=== PATIENT | female | born 1990 | race Caucasian/White ===

== ENCOUNTER 2020-05-03 17:23 | Emergency (ER) | payer BC, SELFPAY ==
[2020-05-03 17:30] VITALS: BP 155/104; PULSE 99; RESP 20; TEMP 37.2; O2SAT 98; BMI 36.0
--- NOTE | 2020-05-03 17:42 | HMH.EDUTC ---
[facility] [place] Disposition Clinical Impression: Pilonidal cyst Disposition: Home, Self-Care Condition on Discharge: Good Instructions: DI for Pilonidal Cyst Drainage or Removal Additional Instructions: Take antibiotics as prescribed. Warm soaks as often as possible. Follow up with surgery for excision. Prescriptions: Sulfamethoxazole/Trimethoprim [Bactrim DS tablet] 1 each PO BID 10 Days #20 tab Transmission Status: Pending to [facility]/pharmacy #[id number] Referrals: Jayden Almonte MD [Staff Physician] - Time of Disposition: 17:45 Medical Decision Making - Galindo Inquiry Pt receiving controlled substance: No Vital Signs: 05/03/20 17:30 Temperature 98.9 F Temperature Source Oral Pulse Rate [Right Brachial] 99 H Respiratory Rate 20 Blood Pressure [Right Arm] 155/104 H Blood Pressure Mean [Right Arm] 121 Blood Pressure Source [Right Arm] Automatic Cuff Blood Pressure Position [Right Arm] Sitting 02 Sat by Pulse Oximetry 98 Oxygen Delivery Method Room Air [facility] [place] HPI - General Stated complaint: Cyst on tail bone Time Seen by Provider: 05/03/20 17:42 Mode of Arrival: Ambulatory Source of Information: Patient Limitations: No Limitations Description of Symptoms (Recalled from Triage Doc. by RN): PATIENT C/O CYST ON TAILBONE X 3 DAYS HEENT Symptoms (Recalled from RN notes): No Resp Symptoms (Recalled from RN notes): No Skin Symptoms (Recalled from RN notes): No MS Symptoms (Recalled from RN notes): No Functional Status (Recalled from RN notes): WNL - History of Present Illness Provider Complaint: Pilonidal cyst right gluteus X 3 days. Has had X 2 in the past. Has had lanced but never had excision because she did not have insurance at the time. Onset (ago): day(s) (3) Location: buttocks Relieving factors: none Exacerbating factors: none Associated symptoms: denies other symptoms Treatments prior to arrival: none - Related Data Previous Rx's Medication Instructions Recorded Amoxicillin/Potassium Clav 1 tab PO Q12H 7 Days #17 tab 01/03/19 [Augmentin 875-125 Tablet] Ibuprofen [Ibuprofen 600mg 600 mg PO Q6HP PRN #30 tab 01/03/19 Tablet] Ondansetron [Zofran 4mg ODT] 4 mg PO Q8HP PRN #20 tab.rapdis 09/24/19 Sulfamethoxazole/Trimethoprim 1 each PO BID 10 Days #20 tab 05/03/20 [Bactrim DS tablet] Allergies Allergy/AdvReac Type Severity Reaction Status Date / Time No Known Allergies Allergy Verified 11/14/18 13:40 - Worker's Comp Is this a Worker's Comp case?: No [facility] History - Hepatitis A Screen Drug use history?: No High risk sexual behaviors?: No History of sexually transmitted infection?: No Currently employed?: No Childcare worker?: No Do you have indoor plumbing?: Yes Do you have electricity?: Yes Attestation statement:: This patient has been screened for Hepatitis A risk factors. I have reviewed the patient's past medical history: No - Social History Alcohol Intake: never Occupational Status: other ROS Obtained: Yes All systems reviewed & no additional complaints - Integumentary/Breasts Skin/Breast: Reports as per HPI Physical Exam - General General appearance: alert, in no apparent distress - Head Head exam: normocephalic - Eye Eye exam: Present: PERRL - ENT ENT exam: Present: normal oropharynx - Respiratory Respiratory exam: Present: normal lung sounds bilaterally - Cardiovascular Cardiovascular exam: Present: regular rate, normal rhythm - Rectal Exam Rectal exam: Present: other (pilonidal cyst right gluteal cleft) - Neurological Exam Neurological exam: Present: alert, oriented X3 - Psychiatric Psychiatric exam: Present: normal affect, normal mood - Skin Skin exam: Present: warm, dry
[2020-05-03 17:45] VITALS: BP 155/104; PULSE 99; RESP 20; TEMP 37.2; O2SAT 98
== END 2020-05-03 17:49 | disposition home or self-care (01) ==
PROVIDERS: Emergency Provider Physician Assistant
DX: L05.91 Pilonidal cyst without abscess (principal)
CPT/HCPCS: 99202; G0463

== ENCOUNTER → 2020-05-06 14:47 | Outpatient (CLI) | payer BC, SELFPAY ==
[2020-05-06 15:17] LABS: Basophils # 0.1 K/mm3 (0-0.2); Basophils % 0.4 % (0.1-2.0); Eosinophils # 0.1 K/mm3 (0.0-0.4); Eosinophils % 0.8 % (0.1-12.0); Hemoglobin 13.2 g/dL (12.2-16.2); Lymphocytes # 1.4 K/mm3 (0.7-4.5); Lymphocytes % 10.4 % (10-50); Mean Corpuscular Volume 85.1 fl (81-99); Mean Platelet Volume 8.1 fl (7.4-10.4); Monocytes # 0.7 K/mm3 (0.1-1.0); Monocytes % 5.2 % (1.7-9.3); Neutrophils # 10.8 K/mm3 (1.8-7.8); Neutrophils % 83.3 % (37.0-80.0); Platelet Count 292 K/mm3 (142-424); Red Cell Distribution Width 13.3 % (11.5-17.5)
[2020-05-06 16:52] LABS: Coronavirus 19 IgG Antibody Negative (Negative); Coronavirus 19 IgM Antibody Negative (Negative)
== END ==
PROVIDERS: Visit Provider Surgery
DX: Z01.812 Encounter for preprocedural laboratory examination (principal); Z20.822 Contact with and (suspected) exposure to COVID-19; L05.91 Pilonidal cyst without abscess
CPT/HCPCS: 36415; 85025; 86328

== ENCOUNTER 2020-05-07 10:26 | Day surgery (SDC) | payer BC, SELFPAY ==
[2020-05-07] VITALS (9 sets, daily range): BP systolic 104–146; BP diastolic 59–84; PULSE 88–115; RESP 16–18; TEMP 36.6–36.9; O2SAT 92–98; BMI 36.8
[2020-05-07 11:01] LABS: HCG Qualitative, Serum Negative (Negative)
--- NOTE | 2020-05-07 12:21 | HMH.OPNOTE ---
Date of procedure: 05/07/20 Pre-op Diagnosis:: Pilonidal cyst with abscess Post-op Diagnosis:: Same Procedure performed:: Incision and drainage of pilonidal cyst with abscess Surgeon:: Juliocesar Fields MD INTERPRETER AND TRANSLATOR:: Harlan Coronel Anesthesia: GETA Estimated blood loss (mL): 5 Clinical Note:: Patient is a pleasant 30-year-old female referred by the [facility] with pilonidal cyst. She states that she has had problems with this in the past. In approximately 2017 she developed symptoms consistent with pilonidal cyst with abscess and underwent incision and drainage in the emergency department in [place]. In 2019 she underwent incision and drainage for pilonidal cyst with abscess in the emergency department at this institution and was referred for surgical evaluation but was unable to keep that appointment. She presented to the [facility] on 05/03/2020 with a 3-day history of progressive pain over the tailbone . She was started on antibiotics and referred for surgical evaluation. She has had a significant amount of pain. She contacted the office yesterday regarding being seen. Patient was seen in the office yesterday and had a large fluctuant pilonidal abscess. Plan was made for incision and drainage under anesthesia. Operative findings:: Consistent with significant pilonidal abscess Operative note:: Patient was taken to the operating room. She was given preoperative intravenous antibiotics. In the operating room she was placed in the supine position. General anesthesia was induced. She was positioned in lateral position. The area was prepped and draped in standard surgical fashion. Since evaluation in the office yesterday she has had some progressive fluctuance and an area of minor necrosis over the most prominent area of fluctuance. Very limited incision was made at this site. Very foul-smelling thick pus vigorously exuded from the wound. This was sent for aerobic and anaerobic cultures. The underlying abscess cavity was evacuated. There were a couple of small skin punctum medial and inferior to the incision and drainage site consistent with pilonidal sinus. The incision was extended to allow for evacuation of underlying abscess. The abscess was not opened in his entirety but was able to be evacuated. Wound was irrigated. Local anesthetic was infiltrated deeply and into the surrounding skin. Wound was packed with 1/2 inch plain packing gauze. Clean dry sterile dressing was applied. Condition: stable Disposition: PACU Specimens:: Cultures Complications:: None immediately apparent
--- NOTE | 2020-05-07 12:28 | HMH.ANESCL ---
[facility] Anesthesia Checklist - Patient Identification Patient Identification: Arm Band - Structural Data Admitted From: Home Planned Operative Procedure/s: I&D Pilonidal Abscess Consent for Planned Operative Procedure(s) Verified: Yes Verified Documents: Surgical Consent, History and Physical - NPO Status Verified Time NPO: 00:00 - Additional verifications Anesthesia Reactions: No Hx Blood Transfusions: No Blood Transfusion Reaction: No - Airway Assessment C-Spine Mobility Assessed: Yes (mp2) TMJ Mobility Assessed: Yes Dentition: Good Dentition - Neurological Assessment Level of Consciousness: Awake, Alert - Anesthesia Plan Anesthesia Risk discussed: Yes Anesthesia Plan: Verified ASA Class: II Anesthesia Type: General [facility] History I have reviewed the patient's past medical history: Yes Medical History: Denies:: Cancer, Diabetes Mellitus Type 1, Diabetes Mellitus Type 2, Internal Pacemaker, MRSA, Seizures *Have you ever received a pneumonia vaccine?: No *Have you received a flu vaccine this season?: No Other Medical History: Denies: Blood Transfusion Reaction Anesthesia experience/problems:: nac Laterality Cases: Right: Other Other Surgeries: Yes: Other. No: Pacemaker Amputation: No Fractures: No - *Social History Last grade of school completed: High school graduate Smoking Status: Never smoker Alcohol Intake: never Substance Use Type: other *Occupational Status:: employed Housing: house Household Members: children *Travel in the last 8 weeks: None Family Hx:: No significant family history
--- NOTE | 2020-05-07 12:29 | P.PN_ITS ---
[facility] Anesthesia Record Part I Intake, IV Amount: 500 Estimated blood loss (mL): 5 Urine output (mL): 0 Blood Pressure: 125/73 SaO2: 92 Pulse Rate: 100 Respiratory Rate: 16 Temperature: 98.3 F Patient is:: Drowsy, Stable Stable to PACU at:: 12:20
--- NOTE | 2020-05-07 12:38 | PC.NURSE ---
1237-pt awake and talking appropriately with staff, eating ice chips w/out difficulty, denies nausea or pain
--- NOTE | 2020-05-07 12:52 | PC.NURSE ---
1248-detailed report called to Amelia,RN 1250-pt transported to post op via stretcher w/onofre rails up, vss, pt stable upon discharge from pacu
--- NOTE | 2020-05-08 08:22 | HMH.ANESII ---
[facility] Anesthesia Record Part II Discharge Time: 12:50 Destination: Surgical Day Care (OP Surgery) PACU nurse assessment reviewed?: Yes Patient Condition:: Good Anesthesia Complications:: None Swallowing reflex intact?: Yes Cyanosis?: No Blood Pressure: 136/65 Pulse Rate: 89 Temperature: 98.4 F Mental Status: Alert & Oriented Pain level:: 0 Nausea and/or vomitting:: None Intake, IV Amount: 0
[2020-05-08 08:23] VITALS: BP 136/65; PULSE 89; TEMP 36.9
== END 2020-05-07 13:25 | disposition home or self-care (01) ==
LOC: OR 10:30
PROVIDERS: Visit Provider Surgery
PROC: (CPT 10081; principal; 2020-05-07 11:30)
DX: L05.01 Pilonidal cyst with abscess (principal); B96.89 Other specified bacterial agents as the cause of diseases classified elsewhere
CPT/HCPCS: 10081; 84703; 87070; 87075; 87077; 87205; 96374; J2405

== ENCOUNTER → 2021-09-05 15:59 | Outpatient (CLI) | payer SELFPAY | PROVIDERS: Visit Provider Nurse Practitioner Family | DX: N39.0 Urinary tract infection, site not specified (principal); B96.4 Proteus (mirabilis) (morganii) as the cause of diseases classified elsewhere | CPT/HCPCS: 87086; 87088; 87186 ==

== ENCOUNTER → 2021-12-03 10:03 | Outpatient (CLI) | payer OTHER, SELFPAY ==
--- NOTE | 2021-12-03 19:54 | PC.NURSE ---
Zeny Xie had a positive strep test.
== END ==
PROVIDERS: PCP Family Medicine; Visit Provider Emergency Medicine
DX: Z20.822 Contact with and (suspected) exposure to COVID-19 (principal)
CPT/HCPCS: C9803; U0003; U0005

== ENCOUNTER → 2022-02-12 11:49 | Outpatient (CLI) | payer OTHER, SELFPAY ==
[2022-02-13 15:07] LABS: Alanine Aminotransferase 17 U/L (12-78); Albumin Level 4.1 g/dl (3.5-5.0); Albumin/Globulin Ratio 1.4 (1.1-1.8); Alkaline Phosphatase 72 U/L (38-126); Anion Gap 13.5 mEq/L (5-15); Aspartate Amino Transferase 25 U/L (14-36); Bilirubin,Total 0.5 mg/dl (0.2-1.3); Blood Urea Nitrogen 11 mg/dl (7-17); Calcium 9.6 mg/dl (8.4-10.2); Carbon Dioxide 27 mmol/L (22.0-30.0); Chloride 102 mmol/L (98-107); Chol/HDL Ratio 3.7 (1-3.5); Cholesterol 168 mg/dl (140-200); Estimated Glomerular Filt Rate 96 ml/min (>60); GFR (African American) 117 ML/MIN (>60); Glucose 97 mg/dl (74-100); HDL Cholesterol 45 mg/dl (40-60); Potassium 4.5 mmoL/L (3.5-5.1); Sodium 138 mmol/L (136-145); Total Protein,Serum 7.1 g/dl (6.3-8.2); Triglycerides 147 mg/dl (30-150); VLDL Cholesterol 29 mg/dL (0-40)
[2022-02-13 15:18] LABS: Direct LDL Cholesterol 84.36 mg/dL (100-129)
[2022-02-13 15:24] LABS: 25-OH Vitamin D, Total 18.3 ng/mL (30-100)
[2022-02-13 15:35] LABS: Basophils # 0.1 K/mm3 (0-0.2); Basophils % 0.8 % (0.1-2.0); Eosinophils # 0.2 K/mm3 (0.0-0.4); Eosinophils % 2.2 % (0.1-12.0); Hemoglobin 12.1 g/dL (12.2-16.2); Lymphocytes # 2.6 K/mm3 (0.7-4.5); Lymphocytes % 31.6 % (10-50); Mean Corpuscular HGB Conc 32.7 g/dL (31.8-35.4); Mean Corpuscular Hemoglobin 28.5 pg (27.0-31.2); Mean Corpuscular Volume 87.3 fl (81-99); Mean Platelet Volume 8.4 fl (7.4-10.4); Monocytes # 0.4 K/mm3 (0.1-1.0); Monocytes % 4.4 % (1.7-9.3); Neutrophils # 4.9 K/mm3 (1.8-7.8); Neutrophils % 60.9 % (37.0-80.0); Platelet Count 411 K/mm3 (142-424); Red Blood Count 4.24 M/mm3 (4.20-5.40); Red Cell Distribution Width 14.4 % (11.5-17.5); White Blood Count 8.1 K/mm3 (4.8-10.8)
[2022-02-13 16:12] LABS: Vitamin B12 217 pg/mL (239-931)
[2022-02-13 18:00] LABS: Folate 6.29 ng/mL
[2022-02-13 18:51] LABS: Iron 56 ug/dL (37-170)
[2022-02-13 19:01] LABS: Total Iron Binding Capacity 458 ug/dL (265-497)
== END ==
LOC: LAB.DROPOF 04-08 11:50
PROVIDERS: PCP Family Medicine; Visit Provider Family Medicine
DX: R07.89 Other chest pain (principal); R53.83 Other fatigue; E55.9 Vitamin D deficiency, unspecified; E61.1 Iron deficiency; Z13.220 Encounter for screening for lipoid disorders
CPT/HCPCS: 80053; 80061; 82306; 82607; 82746; 83540; 83550; 84443; 85025

== ENCOUNTER → 2022-04-27 10:56 | Outpatient (CLI) | payer OTHER, SELFPAY ==
--- NOTE | 2022-04-27 10:56 | US_ITS ---
FINAL REPORT TECHNIQUE: Sonographic images of the pelvis were obtained transvaginally. CLINICAL HISTORY: Heavy Bleeding FINDINGS: The uterus is anteverted and anteflexed. It measures 11.6 x 7.8 x 5.8 cm. The endometrial stripe is thickened and measures 18 mm. The myometrium is within normal limits. There is a small amount of fluid in the cervix which can be normal in a premenopausal patient. The right ovary measures 2.8 x 2.5 x 1.8 cm. There is a dominant follicle. The left ovary measures 3.4 x 5.0 x 3.3 cm. There are several cysts in the left ovary with the largest measuring 3 cm. Color imaging to the ovaries is within normal limits. There is physiologic free fluid. IMPRESSION: 1. Thickened endometrium. Recommend follow-up exam after ablation. 2. Left ovarian cysts, likely functional. Reviewed, Interpreted and Dictated by Mercedes Prasad MD Transcribed by Lesvia Buitrago Authenticated and [facility]
== END ==
PROVIDERS: PCP Family Medicine; Visit Provider Nurse Practitioner Obstetrics & Gynecology
DX: N92.0 Excessive and frequent menstruation with regular cycle (principal); N93.9 Abnormal uterine and vaginal bleeding, unspecified
CPT/HCPCS: 76830

== ENCOUNTER → 2022-06-08 09:57 | Outpatient (CLI) | payer OTHER, SELFPAY ==
[2022-06-08 10:25] LABS: Adenovirus,PCR Not Detected (NotDetected); Bordetella Pertussis Not Detected (NotDetected); Chlamydophila Pneumoniae, PCR Not Detected (NotDetected); Coronavirus 19, PCR Not Detected (NotDetected); Coronavirus 229E Not Detected (NotDetected); Coronavirus NL63 Not Detected (NotDetected); Coronavirus OC43 Not Detected (NotDetected); Coronovirus HKU1,PCR Not Detected (NotDetected); Influenza A, PCR Not Detected (NotDetected); Influenza AH1, 2009 Not Detected (NotDetected); Influenza AH1, PCR Not Detected (NotDetected); Influenza AH3,PCR Not Detected (NotDetected); Influenza B, PCR Not Detected (NotDetected); Mycoplasma Pneumoniae, PCR Not Detected (NotDetected); Parainfluenza 1, PCR Not Detected (NotDetected); Parainfluenza 2, PCR Not Detected (NotDetected); Parainfluenza 3, PCR Not Detected (NotDetected); Parainfluenza 4, PCR Not Detected (NotDetected); Respiratory Syncytial Virus Not Detected (NotDetected); Rhinovirus/Enterovirus Not Detected (NotDetected)
[2022-06-08 12:22] LABS: Human Metapneumovirus Detected (NotDetected)
== END ==
LOC: LAB 09:58
PROVIDERS: PCP Family Medicine; Visit Provider Family Medicine
DX: J06.9 Acute upper respiratory infection, unspecified (principal); B97.81 Human metapneumovirus as the cause of diseases classified elsewhere
CPT/HCPCS: 87581; 87632; 87798; C9803; U0003; U0005

== ENCOUNTER → 2022-06-08 12:44 | Outpatient (CLI) | payer OTHER, SELFPAY | PROVIDERS: PCP Emergency Medicine; Visit Provider Emergency Medicine | DX: J32.9 Chronic sinusitis, unspecified (principal) ==

== ENCOUNTER → 2022-06-29 15:53 | Outpatient (CLI) | payer OTHER, SELFPAY ==
[2022-06-29 17:12] LABS: Chloride 103 mmol/L (98-107)
[2022-06-29 17:13] LABS: Potassium 3.9 mmoL/L (3.5-5.1); Sodium 135 mmol/L (136-145)
[2022-06-29 17:15] LABS: Alanine Aminotransferase 15 U/L (12-78); Albumin Level 4.1 g/dl (3.5-5.0); Albumin/Globulin Ratio 1.3 (1.1-1.8); Alkaline Phosphatase 59 U/L (38-126); Aspartate Amino Transferase 19 U/L (14-36); Bilirubin,Total 0.5 mg/dl (0.2-1.3); Blood Urea Nitrogen 14 mg/dl (7-17); Estimated Glomerular Filt Rate 82 ml/min (>60); GFR (African American) 99 ML/MIN (>60); Globulin 3.2 g/dL (1.3-3.2); Total Protein,Serum 7.3 g/dl (6.3-8.2)
[2022-06-29 17:16] LABS: Anion Gap 10.9 mEq/L (5-15); Calcium 8.7 mg/dl (8.4-10.2); Carbon Dioxide 25 mmol/L (22.0-30.0); Glucose 76 mg/dl (74-100)
[2022-06-29 17:44] LABS: HCG,Quantitative < 2 mIU/ml (0-5.42)
[2022-06-29 18:38] LABS: Basophils # 0.1 K/mm3 (0-0.2); Basophils % 0.7 % (0.1-2.0); Eosinophils # 0.1 K/mm3 (0.0-0.4); Hematocrit 35.7 % (37.0-47.0); Hemoglobin 11.9 g/dL (12.2-16.2); Lymphocytes # 2.9 K/mm3 (0.7-4.5); Lymphocytes % 21.1 % (10-50); Mean Corpuscular HGB Conc 33.4 g/dL (31.8-35.4); Mean Corpuscular Hemoglobin 27.8 pg (27.0-31.2); Mean Corpuscular Volume 83.3 fl (81-99); Mean Platelet Volume 8.4 fl (7.4-10.4); Monocytes # 0.5 K/mm3 (0.1-1.0); Neutrophils % 73.3 % (37.0-80.0); Platelet Count 324 K/mm3 (142-424); Red Blood Count 4.28 M/mm3 (4.20-5.40); Red Cell Distribution Width 14.4 % (11.5-17.5); White Blood Count 13.7 K/mm3 (4.8-10.8)
== END ==
PROVIDERS: PCP Nurse Practitioner Family; Visit Provider Nurse Practitioner Obstetrics & Gynecology
DX: N92.0 Excessive and frequent menstruation with regular cycle (principal)
CPT/HCPCS: 36415; 80053; 84702; 85025

== ENCOUNTER 2022-07-02 05:59 | Day surgery (SDC) | payer OTHER, SELFPAY ==
[2022-06-30 13:36] VITALS: BMI 36.6
[2022-07-02] VITALS (8 sets, daily range): BP systolic 107–119; BP diastolic 49–77; PULSE 60–81; RESP 16–18; TEMP 36.2–43; O2SAT 91–99
--- NOTE | 2022-07-02 07:11 | EXP.ANES.CKL ---
[facility] Disclaimer: The information contained in this section may have been updated after the patient was seen, as this information can be updated by other users. Medical History Cancer Chondroblastoma History of blood transfusion Iron deficiency anemia Normal Pap smear Pilonidal cyst Pilonidal cyst with abscess UTI (urinary tract infection) Surgical History H/O section H/O tubal ligation Hx of shoulder surgery Family History Other No significant family history Social History Smoking Status: Never smoker alcohol intake: never substance use type: denies use and other current occupational status: employed Travel in the last 8 weeks: None adopted: No household members: children housing: house lives independently: Yes marital status: single education level: high school service: No current occupational exposures/hazards: No caffeine: Yes special jennifer needs: No agree to transfusion: No do you feel safe at home: Yes victim of physical abuse: No victim of emotional abuse: No victim of sexual abuse: No would you like helpful sources: No [facility] Anesthesia Checklist Patient Identification Patient Identification: Arm Band and Verbal (Name & ) Structural Data Admitted From: Home Planned Operative Procedure/s: Hyst/D & C Consent for Planned Operative Procedure(s) Verified: Yes NPO Status Verified Time NPO: 00:00 Chart Verification Results Verified: CBC, BMP and HCG Additional verifications Patient : No Anesthesia Reactions: No Hx Blood Transfusions: No Blood Transfusion Reaction: No Airway Assessment C-Spine Mobility Assessed: Yes TMJ Mobility Assessed: Yes Dentition: Good Dentition Neurological Assessment Level of Consciousness: Awake Hx Seizures: No Numbness or tingling in extremities: No Anesthesia Plan Anesthesia Risk discussed: Yes Anesthesia Plan: Verified ASA Class: I Anesthesia Type: MAC
--- NOTE | 2022-07-02 08:32 | EXP.OP.NOTE ---
Date of procedure: 07/02/22 Pre-op Diagnosis:: Menorrhagia Post-op Diagnosis:: Menorrhagia Procedure performed:: Hysteroscopy, dilation and curettage, NovaSure ablation Surgeon:: Omar Thompson MD MANAGER COSMETICS:: Willem Kelly Anesthesia: MAC Estimated blood loss (mL): 50 Clinical Note:: She is a 32-year-old lady who complains of extremely heavy periods. Ultrasound was essentially normal. After having discussed the risk and benefits we elected to perform a hysteroscopy, D&C and NovaSure ablation. Operative findings:: She had an anteverted uterus that was somewhat bulky. It sounded to 9 cm. The endometrial cavity length was 6.5 cm and the width was 4.7 cm. Operative note:: She was taken to the operating room where LMA anesthesia was found be adequate. She was prepped and draped in the normal sterile fashion in the lithotomy position. A weighted speculum was placed in the vagina and the anterior lip of the cervix was grasped with a tenaculum. The cervix was then dilated to approximately 6 mm. I then inserted a hysteroscope into the uterine cavity and the findings were as previously dictated. I then performed a gentle curettage with a medium curette. I then sounded the uterus and determine the length of the uterus. I then inserted the NovaSure device and determine the width of the endometrial cavity. The cavity was 6.5 cm long and the width was 4.7 cm. This was placed into the NovaSure device. I then ran the device through its program. I further inspected the endometrial cavity and was found to be completely charred. I then injected 30 cc of 0.5% ropivacaine at the 3:00, 5:00, 7:00, and 9:00 positions of the cervix. She tolerated procedure well and was taken to the recovery room in excellent condition. All sponge and instrument counts were correct. The estimated blood loss was less than 50 cc. Condition: stable Disposition: PACU Specimens:: Endometrial curettings Complications:: None
== END 2022-07-02 08:48 | disposition home or self-care (01) ==
PROVIDERS: PCP Emergency Medicine; Visit Provider Nurse Practitioner Obstetrics & Gynecology
PROC: 0U5B8ZZ Destruction of Endometrium, Via Natural or Artificial Opening Endoscopic (ICD-10-PCS; CPT 58563; principal; 2022-07-02 07:30)
DX: N92.0 Excessive and frequent menstruation with regular cycle (principal); Z98.51 Tubal ligation status
CPT/HCPCS: 58563; 96374

== ENCOUNTER 2023-02-18 20:03 | Emergency (ER) | payer SELFPAY ==
[2023-02-18 20:05] VITALS: BP 119/67; PULSE 90; RESP 16; TEMP 37.1; O2SAT 99; BMI 35.6
--- NOTE | 2023-02-18 20:36 | HMH.EDGENADL ---
Discharge Plan Disposition Patient Disposition: Home, Self-Care Condition: Good Prescriptions Prescriptions: New amoxicillin-pot clavulanate 875-125 mg tablet 1 tab PO BID Qty: 20 0RF metronidazole 500 mg tablet 500 mg PO BID 7 Days Qty: 14 0RF No Action amoxicillin 500 mg tablet 500 mg PO BID 10 Days Qty: 20 0RF levofloxacin 500 mg tablet 500 mg PO DAILY Qty: 7 0RF benzonatate 100 mg capsule 100 mg PO TID PRN (Reason: cough) 14 Days Qty: 42 0RF Referrals Follow up/Referrals: Juliocesar Fields MD [Staff Physician] - See instructions Conrado Jesus MD [Primary Care Provider] - See instructions Activity Restrictions/Add. Instructions Additional Instructions/Restrictions: You were evaluated in the emergency department today. Please roller picker your prescription for antibiotics at the pharmacy and take the full course as prescribed. Follow-up outpatient with your primary care provider as well as Dr. Fields and with surgery for wound recheck. Return to the emergency department for new or worsening symptoms. Take Tylenol and ibuprofen at home as needed for pain. Clinical Impressions Clinical Impression: Pilonidal abscess Stand Alone Forms Stand Alone Forms: Work/School Release Instructions Patient Instructions: DI for Pilonidal Cyst Drainage or Removal, DI for Skin Abscess Discharge ED Provider: Val Sesay General Adult HPI General Chief complaint: Skin/Abscess/Foreign Body Stated complaint: cyst on tailbone Time Seen by Provider: 02/18/23 20:23 Mode of Arrival: Ambulatory Limitations: No Limitations Description of Symptoms (Recalled from ER Triage Doc. by RN): Presents to ED with c/o Pilonidal cyst that popped up 2 days ago but the pain has gotten worse. Patient states she has hx of pilonidal cyst and had surgery by <5 years ago. +N. 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 History of Present Illness HPI narrative: This patient is a 32-year-old female who reports a history of pilonidal cyst in the past status post surgery with Dr. Fields presenting to the emergency department for recurrence of pilonidal cyst. She states its been a long time since she had 1. It started bothering her 2 days ago. She notes nausea, but no other systemic symptoms, such as fevers, chills, or other concerns. She has otherwise been well. Related Data Previous Rx's Medication Instructions Recorded amoxicillin 500 mg tablet 500 mg PO BID 10 days #20 tabs 08/14/22 levofloxacin 500 mg tablet 500 mg PO DAILY #7 tabs 09/08/22 benzonatate 100 mg capsule 100 mg PO TID PRN cough 14 days 12/18/22 #42 caps amoxicillin 875 mg-potassium 1 tab PO BID #20 tabs 02/18/23 clavulanate 125 mg tablet metronidazole 500 mg tablet 500 mg PO BID 7 days #14 tabs 02/18/23 Allergies Allergy/AdvReac Type Severity Reaction Status Date / Time No Known Allergies Allergy Verified 07/15/22 16:13 [facility] Disclaimer: The information contained in this section may have been updated after the patient was seen, as this information can be updated by other users. Medical History Cancer Chondroblastoma History of blood transfusion Iron deficiency anemia Normal Pap smear Pilonidal cyst Pilonidal cyst with abscess UTI (urinary tract infection) Surgical History H/O section H/O tubal ligation Hx of shoulder surgery Family History Other No significant family history Social History Smoking Status: Never smoker alcohol intake: never substance use type: denies use and other current occupational status: employed Travel in the last 8 weeks: None adopted: No household members: children housing: house lives independently: Yes marital status: single education level: high school serv
--- NOTE | 2023-02-18 21:19 | PC.NURSE ---
4X4 dressing applied to incision and covered with tegaderm. Patient tolerated dressing well
[2023-02-18 21:21] VITALS: BP 107/54; PULSE 80; RESP 18; TEMP 36.8; O2SAT 98
[2023-02-18 21:49] VITALS: BP 109/71; PULSE 84; RESP 16; TEMP 36.8; O2SAT 98
--- NOTE | 2023-02-22 16:41 | PC.NURSE ---
notified dr. collins of gram stain results- wound culture results not back yet. States no changes in medications at this time.
--- NOTE | 2023-02-25 10:30 | PC.NURSE ---
final buttock wound culture shows rare gram + cocci, few white BC, rare gram + rods, pt was DC with flagyl and augmentin, Dr. Hugo aware, no further action needed at this time.
== END 2023-02-18 21:51 | disposition home or self-care (01) ==
PROVIDERS: Emergency Provider Emergency Medicine; PCP Emergency Medicine
DX: L05.01 Pilonidal cyst with abscess (principal); B96.89 Other specified bacterial agents as the cause of diseases classified elsewhere
CPT/HCPCS: 10081; 87070; 87205; 99283

== ENCOUNTER 2024-01-01 10:32 | Emergency (ER) | payer BC, SELFPAY ==
--- NOTE | 2024-01-01 11:10 | ED_ITS ---
Discharge Plan Disposition Patient Disposition: Home, Self-Care Condition: Good Prescriptions Prescriptions: New phenazopyridine [Pyridium] 200 mg tablet 200 mg PO Q8H 2 Days Qty: 6 0RF ondansetron 4 mg Tablet,Disintegrating 4 mg PO Q8H PRN (Reason: Nausea) Qty: 12 0RF nitrofurantoin monohyd/m-cryst [Macrobid] 100 mg Capsule 100 mg PO BID Qty: 10 0RF Rx Instructions: must administer with a meal/food No Action amoxicillin 500 mg tablet 500 mg PO BID 10 Days Qty: 20 0RF levofloxacin 500 mg tablet 500 mg PO DAILY Qty: 7 0RF benzonatate 100 mg capsule 100 mg PO TID PRN (Reason: cough) 14 Days Qty: 42 0RF amoxicillin-pot clavulanate 875-125 mg tablet 1 tab PO BID Qty: 20 0RF metronidazole 500 mg tablet 500 mg PO BID 7 Days Qty: 14 0RF Referrals Follow up/Referrals: Abdirahman Kate APRN [Primary Care Provider] - See instructions Activity Restrictions/Add. Instructions Additional Instructions/Restrictions: Drink plenty of fluids. Take tylenol or ibuprofen for pain or fever. Take the medications as directed. Follow up with your regular doctor. GO TO THE ER FOR ANY WORSENING SYMPTOMS The pyridium will make your urine turn orange, this is an expected side effect. It will stain your clothes if it comes into contact with them. We will culture the urine. That will tell what bacteria is causing your infection and which antibiotics will treat it best.This test takes 3 days to complete. Clinical Impressions Clinical Impression: UTI (urinary tract infection) Instructions Patient Instructions: Urinary Tract Infection, DI for Urinary Tract Infection (UTI), Phenazopyridine Print Language Print Language: Citizen Of [place] Discharge ED Provider: [facility] [place] HPI General Stated complaint: Pain/frequent urination, L back pain, chills, naus Time Seen by Provider: 01/01/24 11:10 Related Data Previous Rx's ?Medication ?Instructions ?Recorded amoxicillin 500 mg tablet 500 mg PO BID 10 days #20 tabs 08/14/22 levofloxacin 500 mg tablet 500 mg PO DAILY #7 tabs 09/08/22 benzonatate 100 mg capsule 100 mg PO TID PRN cough 14 days 12/18/22 #42 caps amoxicillin 875 mg-potassium 1 tab PO BID #20 tabs 02/18/23 clavulanate 125 mg tablet metronidazole 500 mg tablet 500 mg PO BID 7 days #14 tabs 02/18/23 nitrofurantoin 100 mg PO BID #10 caps 01/01/24 monohydrate/macrocrystals 100 mg capsule (Macrobid) ondansetron 4 mg disintegrating 4 mg PO Q8H PRN Nausea #12 tabs 01/01/24 tablet phenazopyridine 200 mg tablet 200 mg PO Q8H 2 days #6 tabs 01/01/24 (Pyridium) Allergies Allergy/AdvReac Type Severity Reaction Status Date / Time No Known Allergies Allergy Verified 07/15/22 16:13 [facility] Disclaimer: The information contained in this section may have been updated after the patient was seen, as this information can be updated by other users. Medical History Cancer Chondroblastoma History of blood transfusion Iron deficiency anemia Normal Pap smear Pilonidal cyst Pilonidal cyst with abscess UTI (urinary tract infection) Surgical History H/O section H/O tubal ligation Hx of shoulder surgery Family History Other No significant family history Social History Smoking Status: Never smoker alcohol intake: never substance use type: denies use and other current occupational status: employed Travel in the last 8 weeks: None adopted: No household members: children housing: house lives independently: Yes marital status: single education level: high school service: No current occupational exposures/hazards: No caffeine: Yes special jennifer needs: No agree to transfusion: No do you feel safe at home: Yes victim of physical abuse: No victim of emotional abuse: No victim of sexual abuse: No would you like helpful sources: No ROS Obtained: Yes All systems reviewed & no additional complaints except as documented Constitutional Constitutional: Reports system reviewed and no additional complaints, except as documented, Denies chills and Denies fever(s) Eyes Eyes: Denies eye discharge ENT Ears, Nose, Mouth, and Throat: Denies dysphagia, Denies sore throat and Denies throat swelling Cardiovascular Cardiovascular: Denies chest pain and Denies dyspnea Respiratory Respiratory: Denies chest congestion, Denies cough and Denies dyspnea Gastrointestinal Gastrointestingal: Denies abdominal pain, constipation, diarrhea, dysphagia, nausea or vomiting Genitourinary Female Genitourinary: Reports as per HPI, Reports dysuria, Reports urinary frequency, Denies urinary incontinence, Reports urinary hesitancy and Reports urinary urgency Musculoskeletal Musculoskeletal: Denies arthralgias and Reports back pain Integumentary/Breasts Skin/Breast: Denies rash Neurologic Neurologic: Denies paresthesias Allergic/Immunologic Allergic/Immunologic: Denies throat swelling Physical Exam General General appearance: alert and in no apparent distress Head Head exam: atraumatic and normocephalic Eye Eye exam: Present normal appearance, PERRL and EOMI ENT ENT exam: Present normal exam, mucous membranes moist, TM's normal bilaterally and normal external ear exam Neck Neck exam: Present normal inspection, full ROM and trachea midline; Absent tenderness, meningismus or lymphadenopathy Chest Chest inspection: Present normal inspection and symmetric chest wall rise; Absent tenderness Respiratory Respiratory exam: Present normal lung sounds bilaterally; Absent respiratory distress, wheezes or stridor Cardiovascular Cardiovascular exam: Present regular rate, normal rhythm and normal heart sounds Abdominal Exam Abdominal exam: Present soft and normal bowel sounds; Absent distention, tenderness, guarding, rebound, rigidity, incision, psoas sign, obturator sign, heel tap sign, Vidal's sign, Rovsing's sign or tenderness at McBurney's Point Extremities Exam Extremities exam: Present normal inspection, full ROM and normal capillary refill; Absent tenderness, edema, joint swelling, calf tenderness or cyanosis Back Exam Back exam: Present normal inspection and full ROM; Absent tenderness, CVA tenderness (R) or CVA tenderness (L) Neurological Exam Neurological exam: Present alert, oriented X3 and normal gait Psychiatric Psychiatric exam: Present normal affect and normal mood Skin Skin exam: Present warm, dry, intact and normal color Lymphatic Lymphatic Findings: no adenopathy Medical Decision Making Medical Records Medical records reviewed: No I reviewed the patient's medical records. Screening: Per USPSTF and CDC recommendations, given the prevalence of disease in our region, it is our hospital?s policy to screen for HIV and viral Hepatitis for all patients aged 18 and over and those with ongoing risk factors. [place] Inquiry Pt receiving controlled substance: No
[2024-01-01 11:18] VITALS: BP 111/68; PULSE 70; RESP 16; TEMP 36.9; O2SAT 97; BMI 34.1
[2024-01-01 11:26] LABS: Apearance,Urine Cloudy (Clear); Bilirubin,Urine 1+ (Negative); Blood, Urine 3+ (Negative); Color,Urine Dark Yellow (Yellow); Glucose,Urine (UA) Negative (Negative); Ketones,Urine Negative (Negative); PH,Urine 5.5 (5.0-8.5); Protein,Urine 3+ (Negative); Urobilinogen,Urine 0.2 EU/dl (0.2)
[2024-01-01 11:27] LABS: UTC Leukocyte Esterase,Urine 3+ (Negative); UTC Nitrate,Urine Positive (Negative)
[2024-01-01 11:41] VITALS: BP 111/68; PULSE 70; RESP 16; TEMP 36.9; O2SAT 97
== END 2024-01-01 11:42 | disposition home or self-care (01) ==
PROVIDERS: Emergency Provider Nurse Practitioner Family; PCP Nurse Practitioner Family
DX: N39.0 Urinary tract infection, site not specified (principal); M54.50 Low back pain, unspecified; R11.0 Nausea; R68.83 Chills (without fever)
CPT/HCPCS: 81003; 87086; 87088; 87186; 99204; 99212; G0463

== ENCOUNTER 2024-01-03 08:29 | Emergency (ER) | payer BC, SELFPAY ==
[2024-01-03 08:31] VITALS: BP 128/92; PULSE 115; RESP 17; TEMP 37.5; O2SAT 99; BMI 34.1
[2024-01-03 08:54] LABS: Microscopic, Urine URINE MICROSCOPIC (MICROSCOPIC)
--- NOTE | 2024-01-03 08:58 | ED_ITS ---
Discharge Plan Disposition Patient Disposition: Home, Self-Care Prescriptions Prescriptions: New cefdinir 300 mg capsule 300 mg PO BID 10 Days Qty: 20 0RF No Action amoxicillin 500 mg tablet 500 mg PO BID 10 Days Qty: 20 0RF levofloxacin 500 mg tablet 500 mg PO DAILY Qty: 7 0RF benzonatate 100 mg capsule 100 mg PO TID PRN (Reason: cough) 14 Days Qty: 42 0RF amoxicillin-pot clavulanate 875-125 mg tablet 1 tab PO BID Qty: 20 0RF metronidazole 500 mg tablet 500 mg PO BID 7 Days Qty: 14 0RF phenazopyridine [Pyridium] 200 mg tablet 200 mg PO Q8H 2 Days Qty: 6 0RF ondansetron 4 mg Tablet,Disintegrating 4 mg PO Q8H PRN (Reason: Nausea) Qty: 12 0RF nitrofurantoin monohyd/m-cryst [Macrobid] 100 mg Capsule 100 mg PO BID Qty: 10 0RF Rx Instructions: must administer with a meal/food Referrals Follow up/Referrals: Abdirahman Kate APRN [Primary Care Provider] - See instructions Activity Restrictions/Add. Instructions Additional Instructions/Restrictions: Cefdinir twice daily for 10 days. Call your family doctor to establish care for this visit to the emergency department and schedule follow-up within 48 hours to ensure improvement. If you have any worsening of your condition or any other concerning signs or symptoms, return to the emergency department or your primary care doctor for further evaluation. Clinical Impressions Clinical Impression: Pyelonephritis Instructions Patient Instructions: DI for Urinary Tract Infection (UTI), DI for Urinary Tract Infection in Children Print Language Print Language: [place] Discharge ED Provider: [facility] HPI General Chief complaint: Urogenital-Female Stated complaint: fever, chills, nausea Time Seen by Provider: 01/03/24 08:31 History of Present Illness HPI narrative: Please note that above description of symptoms, in this electronic medical record under categorization of recalled from ER triage doctor by RN are reflective of an initial nursing assessment, however, is not reflective of my full history and physical exam that was personally taken and clarified. Consequentially, this preceding description of symptoms, which may include the patient's categorized chief complaint in the EMR, do not reflect my personal clinical impression, and the ultimate description of history of present illness and patient stated complaints should be deferred to this section of the note. Unless stated otherwise or congruent with this section of the note, additional signs, symptoms, or incongruence should be interpreted as inaccurate with my clinical impression. Related Data Previous Rx's ?Medication ?Instructions ?Recorded amoxicillin 500 mg tablet 500 mg PO BID 10 days #20 tabs 08/14/22 levofloxacin 500 mg tablet 500 mg PO DAILY #7 tabs 09/08/22 benzonatate 100 mg capsule 100 mg PO TID PRN cough 14 days 12/18/22 #42 caps amoxicillin 875 mg-potassium 1 tab PO BID #20 tabs 02/18/23 clavulanate 125 mg tablet metronidazole 500 mg tablet 500 mg PO BID 7 days #14 tabs 02/18/23 nitrofurantoin 100 mg PO BID #10 caps 01/01/24 monohydrate/macrocrystals 100 mg capsule (Macrobid) ondansetron 4 mg disintegrating 4 mg PO Q8H PRN Nausea #12 tabs 01/01/24 tablet phenazopyridine 200 mg tablet 200 mg PO Q8H 2 days #6 tabs 01/01/24 (Pyridium) cefdinir 300 mg capsule 300 mg PO BID 10 days #20 caps 01/03/24 Allergies Allergy/AdvReac Type Severity Reaction Status Date / Time No Known Allergies Allergy Verified 07/15/22 16:13 [facility] Disclaimer: The information contained in this section may have been updated after the patient was seen, as this information can be updated by other users. Medical History Cancer Chondroblastoma History of blood transfusion Iron deficiency anemia Normal Pap smear Pilonidal cyst Pilonidal cyst with abscess UTI (urinary tract infection) Surgical History H/O section H/O tubal ligation Hx of shoulder surgery Family History Other No significant family history Social History Smoking Status: Never smoker alcohol intake: never substance use type: denies use and other current occupational status: employed Travel in the last 8 weeks: None adopted: No household members: children housing: house lives independently: Yes marital status: single education level: high school service: No current occupational exposures/hazards: No caffeine: Yes special jennifer needs: No agree to transfusion: No do you feel safe at home: Yes victim of physical abuse: No victim of emotional abuse: No victim of sexual abuse: No would you like helpful sources: No ROS Obtained: Yes All systems reviewed & no additional complaints except as documented Physical Exam General General appearance: alert Head Head exam: atraumatic and normocephalic Eye Eye exam: Present normal appearance, PERRL and EOMI Neck Neck exam: Present normal inspection, full ROM and trachea midline Respiratory Respiratory exam: Absent respiratory distress, wheezes, stridor, accessory muscle use or prolonged expiratory phase Cardiovascular Cardiovascular exam: Present regular rate, normal rhythm and other (Pulses equal symmetric in upper and lower extremities) Abdominal Exam Abdominal exam: Present soft; Absent distention, tenderness, guarding, rebound, rigidity or pulsatile mass Extremities Exam Extremities exam: Absent edema Neurological Exam Neurological exam: Present alert, oriented X3 and CN II-XII intact; Absent motor sensory deficit Skin Skin exam: Present warm and dry; Absent diaphoresis or erythema Medical Decision Making Medical Records Medical records reviewed: Yes I reviewed the patient's medical records. Screening: Per USPSTF and CDC recommendations, given the prevalence of disease in our region, it is our hospital?s policy to screen for HIV and viral Hepatitis for all patients aged 18 and over and those with ongoing risk factors. [place] Inquiry Pt receiving controlled substance: No [place] was queried for this patient: No Vital Signs: 01/03/24 08:31 Temperature 99.5 F Temperature Source Oral Pulse Rate [Right] 115 H Respiratory Rate 17 Blood Pressure [Right Radial Artery] 128/92 H Blood Pressure Mean [Right Radial Artery] 104 Blood Pressure Source [Right Radial Artery] Automatic Cuff Blood Pressure Position [Right Radial Artery] Sitting 02 Sat by Pulse Oximetry 99 Oxygen Delivery Method Room Air Lab Data Lab Results 01/03/24 08:35: Urine Color [place], Urine Appearance Sl cloudy, Urine pH 5.5, Ur Specific [place] 1.025, Urine Protein 2+ A, Urine Glucose (UA) Trace, Urine Ketones 2+, Urine Blood 1+ A, Urine Nitrate Positive, Urine Bilirubin 2+ A, Urine Urobilinogen 4.0, Ur Leukocyte Esterase Negative, Urine RBC Occasional, Urine WBC 3-5, Ur Squamous Epith Cells Occasional, Urine Bacteria Trace 01/03/24 08:50: WBC 12.7 H, RBC 4.52, Hgb 13.3, Hct 40.6, MCV 89.9, MCH 29.4, MCHC 32.7, RDW 13.6, Plt Count 220, MPV 8.2, Neut % (Auto) 86.8 H, Lymph % (Auto) 6.7 L, [place] % (Auto) 5.5, Eos % (Auto) 0.6, Baso % (Auto) 0.4, Neut # (Auto) 11.1 H, Lymph # (Auto) 0.9, [place] # (Auto) 0.7, Eos # (Auto) 0.1, Baso # (Auto) 0.1, Total Counted 100, Neutrophils % (Manual) 88 H, Lymphocytes % (Manual) 7 L, Monocytes % (Manual) 5, Platelet Estimate Normal, RBC Morphology Normal, Sodium 132 L, Potassium 3.6, Chloride 102, Carbon Dioxide 27, Anion Gap 6.6, BUN 11, Creatinine 0.90, Estimated Creat Clear 128, Estimated GFR 71, Est GFR ( Amer) 86, Glucose 119 H, Calcium 9.1, Total Bilirubin 2.0 H, AST 32, ALT 33, Alkaline Phosphatase 76, Total Protein 7.8, Albumin 4.1, Globulin 3.7 H, Albumin/Globulin Ratio 1.1, Lipase 28, HCG, Quant < 2 01/03/24 08:50 01/03/24 08:50 Orders (Tests/Meds): ED MEDICATIONS Discontinued Medications Generic Name Dose Route Start Last Admin Trade Name Syeda PRN Reason Stop Dose Admin Acetaminophen 1,000 mg 01/03/24 08:48 01/03/24 08:59 Acetaminophen 500mg Tab PO 01/03/24 08:49 1,000 mg ONCE ONE Administration Lactated Ringer's 1,000 mls @ 999 mls/hr 01/03/24 08:48 01/03/24 08:59 Lactated Ringer's 1000 Ml Bag IV 01/03/24 09:48 999 mls/hr .Q1H1M ONE Administration Ceftriaxone Sodium 2 gm/ 100 mls @ 200 mls/hr 01/03/24 09:14 01/03/24 09:31 Sodium Chloride IV 01/03/24 09:43 200 mls/hr ONCE ONE Administration Ondansetron HCl 4 mg 01/03/24 08:48 01/03/24 08:59 Ondansetron 4mg/2ml Vial IV 01/03/24 08:49 4 mg ONCE ONE Administration ORDERS Category Date Time Status CBC w/Auto Diff [Complete Blood Count Auto Diff] Stat Lab 01/03/24 08:50 Completed CMP [Comprehensive Metabolic Panel] Stat Lab 01/03/24 08:50 Results CRP [C-Reactive Protein] Stat Lab 01/03/24 08:50 Results HCG,Quantitative Stat Lab 01/03/24 08:50 Results HIV (1&2) Antibody Rapid Stat Lab 01/03/24 08:50 Received Hep C Ab with Reflex to RNA Stat Lab 01/03/24 08:50 Received Lipase Stat Lab 01/03/24 08:50 Results Trichomonas Vaginalis, RAGHU Stat Lab 01/03/24 08:50 Received UA [Urinalysis and Microscopic] Stat Lab 01/03/24 08:35 Completed Blood Culture Stat Micro 01/03/24 09:30 Received Medical Decision Narrative: 33-year-old female history of section and tubal ligation presenting with right flank pain, dysuria, fevers and chills. Patient states that she was having abdominal pain, flank pain, fevers and chills that started 3 days prior to this visit. Associated with dysuria. Went to the urgent care on 12/31, diagnosed with urinary tract infection with urinalysis blood, protein, nitrates, leukocyte Estrace. Started on Macrobid and phenazopyridine for symptoms. States that symptoms have been persistent, so came to the emergency department this time for further evaluation. No worsening of symptoms, just non improvement. Flank pain is mild, does not radiate, vomiting is nonbloody, nonbilious. No current urinary or stool symptoms. History was obtained via conversation with patient. On arrival, patient hemodynamically stable, alert, oriented x4, appropriate, GCS 15, moving all extremities spontaneously, pupils equal and reactive to light. Full physical exam performed and significant for very well-appearing female who is in no acute distress. Speaking full sentences, sitting up, transferring, walking without issue. No peritonitis on abdominal exam or any tenderness or abnormality. Patient does have right flank tenderness to percussion without induration. No overlying skin changes or bruising. No left flank tenderness. Differential includes UTI, pyelonephritis, antibiotic resistant infection, nephrolithiasis, STD, PID, PUD, gastritis, enteritis, gastroenteritis, pancreatitis, SBO, colitis, diverticulitis, cholecystitis, choledocholithiasis, appendicitis, hepatitis, torsion, less likely to be aortic pathology, mesenteric ischemia among others. Patient placed on continuous cardiac monitoring and continuous pulse ox with initial blood pressure 128/92, heart rate 115, saturation 99% on room air. Patient given fluids, Zofran, acetaminophen for symptoms and management. Workup independently interpreted and significant for mild leukocytosis 12.7 with neutrophilia. Patient's kidney function normal. Mild hyponatremia 132, patient given IV fluids for this. hCG negative, urinalysis with concern for pyelonephritis protein, blood, nitrates and leukocyte Estrace. Patient given 2 g ceftriaxone. Blood cultures were drawn prior to this.On reevaluation, patient states she is feeling better after fluids. Antibiotics administered. After reviewing sensitivities, patient urinary tract infection appears to be E. coli resistant to ampicillin and Bactrim, I feel Macrobid is probably not appropriate for developing pyelonephritis. Given patient presentation, workup, history, this most likely represents pyelonephritis. Less likely to be a stone given progression of symptoms and no history of stones. CT of the abdomen pelvis was considered, but not deemed necessary at this time given adequate explained process. Because patient at baseline without signs or symptoms of clinical decompensation, deemed appropriate for discharge. Results were relayed to patient who voiced understanding and were agreeable to outpatient management and follow up. I discussed my clinical impression with patient and answered all questions. At this time, the evidence for any other entities in the differential is insufficient to warrant any further testing or ED observation. This was explained as well. Advisory was given that persistent or worsening symptoms require further evaluation. I confirmed the understanding of this discussion. Medicare Sales Representative disclaimer Much of this encounter note is an electronic skin peeling machine operator spoken language to printed text. Electronic skin peeling machine operator of the spoken language may permit errors. Although I have reviewed the note, some errors may still exist. Critical Care Critical Care Time Critical Care Time: No
[2024-01-03] MEDS: LACTATED RINGERS 1000ML 1,000 ML 999 ML IV (08:59)
[2024-01-03] MEDS: ACETAMINOPHEN 500MG TAB 1000 MG PO (08:59)
[2024-01-03] MEDS: ONDANSETRON 4MG/2ML VIAL 4 MG IV (08:59)
[2024-01-03 09:01] LABS: Basophils # 0.1 K/mm3 (0-0.2); Basophils % 0.4 % (0.1-2.0); Eosinophils # 0.1 K/mm3 (0.0-0.4); Eosinophils % 0.6 % (0.1-12.0); Hematocrit 40.6 % (37.0-47.0); Hemoglobin 13.3 g/dL (12.2-16.2); Lymphocytes # 0.9 K/mm3 (0.7-4.5); Lymphocytes % 6.7 % (10-50); Mean Corpuscular HGB Conc 32.7 g/dL (31.8-35.4); Mean Corpuscular Hemoglobin 29.4 pg (27.0-31.2); Mean Corpuscular Volume 89.9 fl (81-99); Mean Platelet Volume 8.2 fl (7.4-10.4); Monocytes # 0.7 K/mm3 (0.1-1.0); Monocytes % 5.5 % (1.7-9.3); Neutrophils # 11.1 K/mm3 (1.8-7.8); Neutrophils % 86.8 % (37.0-80.0); Platelet Count 220 K/mm3 (142-424); Red Blood Count 4.52 M/mm3 (4.20-5.40); Red Cell Distribution Width 13.6 % (11.5-17.5); White Blood Count 12.7 K/mm3 (4.8-10.8)
[2024-01-03 09:02] VITALS: BP 90/64; PULSE 97; O2SAT 99
[2024-01-03 09:02] LABS: Appearance,Urine SL CLOUDY (Clear); Blood, Urine 1+ (Negative); Color,Urine ORANGE (Yellow); Glucose,Urine (UA) TRACE (Negative); Ketones,Urine 2+ (Negative); Leukocyte Esterase,Urine Negative (Negative); Nitrate,Urine POSITIVE (Negative); PH,Urine 5.5 (5.0-8.5); Protein,Urine 2+ (Negative); Specific Gravity, Urine 1.025 (1.005-1.030)
--- NOTE | 2024-01-03 09:04 | PC.NURSE ---
I rounded on the pt, no new complaints at this time. no needs voiced, call kerr in reach.
[2024-01-03 09:09] LABS: Bilirubin,Urine 2+ (Negative)
[2024-01-03 09:14] LABS: MANUAL DIFFERENTIAL MANUAL DIFFERENTIAL (MANUAL DIFF)
[2024-01-03 09:25] LABS: Alanine Aminotransferase 33 U/L (12-78); Albumin Level 4.1 g/dl (3.5-5.0); Albumin/Globulin Ratio 1.1 (1.1-1.8); Alkaline Phosphatase 76 U/L (38-126); Anion Gap 6.6 mEq/L (5-15); Aspartate Amino Transferase 32 U/L (14-36); Blood Urea Nitrogen 11 mg/dl (7-17); Calcium 9.1 mg/dl (8.4-10.2); Carbon Dioxide 27 mmol/L (22.0-30.0); Chloride 102 mmol/L (98-107); Creatinine Clearance Estimated 128 mL/min (50-200); Estimated Glomerular Filt Rate 71 ml/min (>60); GFR (African American) 86 ML/MIN (>60); Globulin 3.7 g/dL (1.3-3.2); Glucose 119 mg/dl (74-100); Lipase 28 U/L (23-300); Potassium 3.6 mmoL/L (3.5-5.1); Sodium 132 mmol/L (136-145); Total Protein,Serum 7.8 g/dl (6.3-8.2)
[2024-01-03 09:28] LABS: Bacteria,Urine Trace /lpf; RBC,Urine Occasional #/hpf (0-3); Squamous Epithelial Cell,Urine Occasional #/hpf (0-5)
[2024-01-03 09:31] VITALS: BP 111/84; PULSE 96; O2SAT 98
[2024-01-03] MEDS: CEFTRIAXONE SODIUM 2 GM in 0.9 % SODIUM CHLORIDE 100 ML IV (09:31)
[2024-01-03 09:50] LABS: Lymphocytes % 7 % (10-50); Monocytes % 5 % (2-9); Neutrophils % 88 % (42-76); Platelet Estimate Normal; RBC Morphology Normal; Total Cells Counted 100
[2024-01-03 10:00] VITALS: BP 104/60; PULSE 92; O2SAT 97
[2024-01-03 10:21] LABS: HCG,Quantitative < 2 mIU/ml (0-5.42)
[2024-01-03 10:28] VITALS: BP 104/60; PULSE 79; RESP 20; TEMP 37.2; O2SAT 98
--- NOTE | 2024-01-03 10:28 | PC.NURSE ---
Dr. Hugo at bedside discussing results and d/c POC
[2024-01-03 10:53] LABS: C-Reactive Protein 197.7 mg/L (0-4)
[2024-01-03 12:59] LABS: HIV (1&2) Antibody Rapid NONREACTIVE (NONREACTIVE)
[2024-01-04 08:27] LABS: HCV Ab Non Reactive (Non Reactive)
[2024-01-05 04:17] LABS: Neisseria gonorrhoeae, NAA Negative (Negative)
[2024-01-05 06:28] LABS: Trichomonas Vaginalis, NAA Negative (Negative)
== END 2024-01-03 10:35 | disposition home or self-care (01) ==
PROVIDERS: Emergency Provider Emergency Medicine; PCP Nurse Practitioner Family
DX: N10 Acute pyelonephritis (principal); R50.9 Fever, unspecified; R10.31 Right lower quadrant pain; M54.59 Other low back pain; R30.0 Dysuria; E87.1 Hypo-osmolality and hyponatremia
CPT/HCPCS: 80053; 81001; 83690; 84702; 85007; 85025; 85027; 86140; 86803; 87040; 87389; 87491; 87591; 87661; 96365; 96375; 99284; J0696; J2405; J7120